=== PATIENT | female | born 1980 | race African-American/Black ===

== ENCOUNTER → 2020-04-20 14:37 | Outpatient (BNVA) | payer OTHER, SELFPAY | PROVIDERS: PCP Internal Medicine; Referring Provider Internal Medicine; Visit Provider Obstetrics & Gynecology | DX: Z76.89 Persons encountering health services in other specified circumstances (principal) ==

== ENCOUNTER 2020-04-20 17:39 | Outpatient (REF) | payer OTHER, SELFPAY ==
[2020-04-21 10:30] LABS: CT PCR NOT DETECTED (Not Detect.); NG PCR NOT DETECTED (Not Detect.)
== END 2020-04-20 17:40 | disposition home or self-care (01) ==
LOC: HO.LNP 17:39
PROVIDERS: Visit Provider Obstetrics & Gynecology
DX: Z11.3 Encounter for screening for infections with a predominantly sexual mode of transmission (principal); N92.0 Excessive and frequent menstruation with regular cycle
CPT/HCPCS: 87491; 87591

== ENCOUNTER 2020-04-24 13:50 | Outpatient (REF) | payer OTHER, SELFPAY ==
--- NOTE | 2020-04-24 13:55 | US_ITS ---
EXAMINATION: PELVIC ULTRASOUND CLINICAL INFORMATION: Extensive frequent menstruation with regular cycle COMPARISON: Previous pelvic ultrasound May 2017 TECHNIQUE: Transabdominal and transvaginal pelvic ultrasound was performed. Transvaginal exam was performed for better visualization of the uterus and ovaries. FINDINGS: The uterus is anteverted and measures 11.1 x 5.1 x 7.3 cm in dimension. Endometrial thickness is normal estimated at 1.2 cm. No focal uterine lesion is seen. The cervix is normal appearing. The right ovary is seen transabdominally only. The right ovary is slightly enlarged measuring 3.4 x 2.9 x 4 cm, volume 20 mL. No focal lesion is seen. The left ovary is normal-appearing and measures 3.4 x 1.6 x 2.8 cm, volume 8 mL. There is no fluid in the pelvis. US/US transvaginal IMPRESSION: Slightly enlarged right ovary. Otherwise unremarkable exam.
--- NOTE | 2020-04-24 13:55 | US_ITS ---
EXAMINATION: PELVIC ULTRASOUND CLINICAL INFORMATION: Extensive frequent menstruation with regular cycle COMPARISON: Previous pelvic ultrasound May 2017 TECHNIQUE: Transabdominal and transvaginal pelvic ultrasound was performed. Transvaginal exam was performed for better visualization of the uterus and ovaries. FINDINGS: The uterus is anteverted and measures 11.1 x 5.1 x 7.3 cm in dimension. Endometrial thickness is normal estimated at 1.2 cm. No focal uterine lesion is seen. The cervix is normal appearing. The right ovary is seen transabdominally only. The right ovary is slightly enlarged measuring 3.4 x 2.9 x 4 cm, volume 20 mL. No focal lesion is seen. The left ovary is normal-appearing and measures 3.4 x 1.6 x 2.8 cm, volume 8 mL. There is no fluid in the pelvis. US/US pelvic complete IMPRESSION: Slightly enlarged right ovary. Otherwise unremarkable exam.
[2020-04-24 16:42] LABS: Hematocrit 37.8 % (37-47); Hemoglobin 12.2 g/dl (12.0-16.0); Mean Corpuscular HGB Conc 32.3 g/dl (31.0-35.0); Mean Corpuscular Hemoglobin 28.5 pg (27.0-33.0); Mean Corpuscular Volume 88.3 fL (80-98); Mean Platelet Volume 9.1 fL (9.4-12.3); Platelet Count 282 X10*3/uL (160-400); Red Blood Count 4.28 X10*6/uL (4.20-5.50); Red Cell Distribution Width 13.8 % (11.0-16.0); White Blood Count 7.8 X10*3/uL (4.8-10.8)
[2020-04-24 17:26] LABS: Thyroid Stimulating Hormone 1.56 uIU/mL (0.32-4.0)
[2020-04-24 17:38] LABS: HCG Quantitative < 2 mIU/mL
== END 2020-04-24 13:51 | disposition home or self-care (01) ==
LOC: HO.HMGCX 13:50
PROVIDERS: PCP Internal Medicine; Visit Provider Obstetrics & Gynecology
DX: Z01.419 Encounter for gynecological examination (general) (routine) without abnormal findings (principal); N92.0 Excessive and frequent menstruation with regular cycle; Z11.8 Encounter for screening for other infectious and parasitic diseases; Z11.3 Encounter for screening for infections with a predominantly sexual mode of transmission
CPT/HCPCS: 36415; 76830; 76856; 84443; 84702; 85027

== ENCOUNTER → 2020-05-18 15:46 | Outpatient (BNVA) | payer OTHER, SELFPAY | PROVIDERS: PCP Internal Medicine; Visit Provider Obstetrics & Gynecology | DX: Z76.89 Persons encountering health services in other specified circumstances (principal) ==

== ENCOUNTER 2021-01-12 14:05 | Outpatient (REF) | payer OTHER, SELFPAY ==
[2021-01-12 16:38] LABS: C Reactive Protein 0.36 mg/dL (< or = 0.50)
[2021-01-12 18:27] LABS: Erythrocyte Sedimentation Rate 13 MM/HR (0-20)
[2021-01-16 09:31] LABS: Anti Nuclear Antibody Screen POSITIVE (NEGATIVE)
== END 2021-01-12 14:06 | disposition home or self-care (01) ==
LOC: HO.HMGCLDS 14:05
PROVIDERS: PCP Internal Medicine; Visit Provider Internal Medicine
DX: M25.50 Pain in unspecified joint (principal); R76.8 Other specified abnormal immunological findings in serum
CPT/HCPCS: 36415; 85652; 86038; 86039; 86140

== ENCOUNTER 2021-07-23 13:02 | Outpatient (REF) | payer OTHER, SELFPAY ==
--- NOTE | ~2021-07-23 | XR_ITS ---
EXAMINATION: XR SINUSES CLINICAL INFORMATION: Other specified disorder of the nose and nasal sinuses COMPARISON: None TECHNIQUE: Single Balderas' view of the paranasal sinuses FINDINGS: The visualized paranasal sinuses are clear without evidence of opacification or air-fluid level to suggest sinusitis. Bony structures are unremarkable. XR/XR sinus balderas view IMPRESSION: Normal balderas view of the paranasal sinuses.
== END 2021-07-23 13:03 | disposition home or self-care (01) ==
LOC: HO.HMGCX 13:02
PROVIDERS: Visit Provider Internal Medicine
DX: J34.89 Other specified disorders of nose and nasal sinuses (principal); R51.9 Headache, unspecified
CPT/HCPCS: 70210